=== PATIENT | male | born 1950 | race Caucasian/White ===

== ENCOUNTER 2024-03-03 22:57 | Outpatient (CLI) | payer MEDICARE | END 2024-03-03 22:58 | disposition critical access hospital (66) | LOC: EMS 22:57 | DX: R55 Syncope and collapse (principal); M25.551 Pain in right hip | CPT/HCPCS: A0425; A0427 ==

== ENCOUNTER 2024-03-03 23:35 | Emergency (ER) | payer BC, MEDICARE ==
[2024-03-04 00:18] LABS: BASOPHILS # (AUTO) 0.1 10^3/uL (0.0-0.1); BASOPHILS % (AUTO) 0.7 %; EOSINOPHILS # (AUTO) 0.2 10^3/uL (0.0-0.7); EOSINOPHILS % (AUTO) 1.7 %; HCT - HEMATOCRIT 40.4 % (42.0-52.0); HGB - HEMOGLOBIN 12.8 g/dL (14.0-18.0); LYMPHOCYTES % (AUTO) 8.3 %; MEAN CORPUSCULAR HEMOGLOBIN 29.8 pg (27.0-31.0); MEAN CORPUSCULAR HGB CONC 31.7 g/dL (32.0-36.0); MEAN PLATELET VOLUME 10.2 fL (7.4-11.4); MONOCYTES # (AUTO) 0.8 10^3/uL (0.0-1.0); MONOCYTES % (AUTO) 6.8 %; NEUTROPHILS # (AUTO) 9.9 10^3/uL (1.5-6.6); NEUTROPHILS % (AUTO) 82.2 %; PLT - PLATELET COUNT 267 10^3/uL (130-450); RED CELL DISTRIBUTION WIDTH 13.7 % (12.0-15.0)
[2024-03-04 00:39] LABS: ALBUMIN 3.6 g/dL (3.2-5.5); ALBUMIN/GLOBULIN RATIO 1.6 (1.0-2.2); BILIRUBIN,TOTAL 0.8 mg/dL (0.2-1.0); POTASSIUM 4.1 mmol/L (3.5-4.5); TOTAL PROTEIN 5.8 g/dL (6.4-8.9); TROPONIN I HIGH SENSITIVITY 7.5 ng/L (2.3-19.7)
[2024-03-04] MEDS: HYDROmorphone 0.5 MG/0.5 ML SYRINGE IVP STA (01:16)
[2024-03-04] MEDS: SODIUM CHLORIDE 0.9% 1,000 ML IV STA (01:16)
--- NOTE | 2024-03-04 01:40 | ED Physician Documentation ---
History of Present Illness - Stated complaint Stated Complaint: SYNCOPE - Chief complaint Chief Complaint: Neuro - History obtained from History obtained from: Patient, EMS - Additonal information Additional information: The pt comes to the ED via EMS for CC of R hip pain and syncopal episode after working in the garden today. He states he was out all day and didn't eat or drink any water. He was trying to move a heavy shovel of dirt, when he strained his R hip, feeling several "pops". He states he sat down for a few minutes, but was then able to get up and stand and walk on his R hip without difficulty. However, he reports pain in the inner thigh/groin, where the leg attaches to the pelvic area. No swelling. No pain in the joint. The patient came inside to fix some food, and while in the kitchen, began to feel dizzy. He denies any SOB or CP at that time. However, he was lightheaded, so went to sit down on the couch, where he lost consciousness. He awoke to find himself still on the couch, but estimates up to 5 minutes had passed. He states he still felt a bit lightheaded, but denies onset of new sx. The pt states he has fainted once before. No known cardiac issues. PD PAST MEDICAL HISTORY - Past Medical History Past Medical History: Yes Cardiovascular: Hypertension, High cholesterol GI: GERD - Past Surgical History Past Surgical History: Yes Ortho: ACL reconstruction, Rotator cuff repair Cardiovascular: CABG - Present Medications Home Medications: Ambulatory Orders Medication Instructions Recorded Confirmed Atorvastatin [Lipitor] See Rx Instructions .ROUTE .COMPLEX 03/04/24 HYDROcod/ACETAM 5/325 [[place] 5/325] 1 - 2 tablet PO Q6H PRN #14 tablet 03/04/24 Metoprolol Tartrate [Lopressor] See Rx Instructions .ROUTE .COMPLEX 03/04/24 Pantoprazole Sodium See Rx Instructions .ROUTE .COMPLEX 03/04/24 Warfarin [Coumadin] See Rx Instructions .ROUTE .COMPLEX 03/04/24 03/04/24 buPROPion [Wellbutrin Xl] See Rx Instructions .ROUTE .COMPLEX 03/04/24 - Allergies Allergies/Adverse Reactions: Allergies Allergy/AdvReac Type Severity Reaction Status Date / Time No Known Drug Allergies Allergy Verified 03/03/24 23:35 - Social History Does the pt smoke?: No Smoking Status: Never smoker Does the pt drink ETOH?: Yes Substance Use and Type: Marijuana PD ED PE NORMAL - Vitals Vital signs reviewed: Yes - General General: Alert and oriented X 3, No acute distress, Well developed/nourished - HEENT HEENT: Atraumatic, PERRL, EOMI, Moist mucous membranes - Neck Neck: Supple, no meningeal sign - Cardiac Cardiac: RRR, No murmur, Strong equal pulses - Respiratory Respiratory: No respiratory distress, Clear bilaterally - Abdomen Abdomen: Soft, Non tender, Non distended - Derm Derm: Normal color, Warm and dry, No rash - Extremities Extremities: No deformity, Normal ROM s pain, No edema, No calf tenderness / cord, Other (TTP of superior-most and medial-most aspect of adductors on R LE. No tenderness of hip joint. No pain with ROM.) - Neuro Neuro: Alert and oriented X 3 - Psych Psych: Normal mood, Normal affect Results - Vitals Vitals: Oxygen O2 Source Room air - EKG (time done) 0005 EKG releavant findings:: EKG personally interpreted by author of this note. Relevant findings are: Rate: Rate (enter#) (55) Rhythm: NSR [place]: Normal Intervals: Normal IA QRS: Normal Ischemia: Normal ST segments Compare to prior EKG: Old EKG unavailable Computer interpretation: Agree with computer - Labs Labs: Laboratory Tests 03/04/24 03/04/24 00:13 00:13 WBC 12.0 H RBC 4.30 L Hgb 12.8 L Hct 40.4 L MCV 94.0 MCH 29.8 MCHC 31.7 L RDW 13.7 Plt Count 267 MPV 10.2 Neut # (Auto) 9.9 H Lymph # (Auto) 1.0 L [place] # (Auto) 0.8 Eos # (Auto) 0.2 Baso # (Auto) 0.1 Absolute Nucleated RBC 0.00 Nucleated RBC % 0.0 Sodium 137 Potassium 4.1 Chloride 107 Carbon Dioxide 24 Anion Gap 6.0 BUN 20 Creatinine 1.0 Estimated GFR (MDRD) 73 L Glucose 118 H Calcium 9.0 Total Bilirubin 0.8 AST 18 ALT 21 Alkaline Phosphatase 54 Troponin I High Sens 7.5 Total Protein 5.8 L Albumin 3.6 Globulin 2.2 Albumin/Globulin Ratio 1.6 Lipase 18 - Rads (name of study) R hip/pelvis XR Relevant Findings:: Final report received, Other (neg) PD Medical Decision Making - ED course Complexity details: reviewed old records, reviewed results, re-evaluated patient, considered differential, d/w patient ED course: The patient was treated with a liter of NS via IV and worked up with labs, EKG, and XR R hip/pelvis, all of which were unremarkable. He was able to ambulate in the ED, though with mild limp, using a walker. I felt the pt was stable for d/c home. I suspected his syncopal episode was due to dehydration after working in the sun all day without food or water, and perhaps the added effect of the pain on top of that. The pt felt better after fluids, and had no further complaints, other than the hip. We have discussed symptomatic management at home, as well as the usual indications for return. Departure - Departure Disposition: 01 Home, Self Care Clinical Impression: Dehydration Syncope Qualifiers: Syncope type: unspecified Qualified Code(s): R55 - Syncope and collapse Hip strain Qualifiers: Encounter type: initial encounter Laterality: right Qualified Code(s): S76.011A - Strain of muscle, fascia and tendon of right hip, initial encounter Condition: Stable Instructions: ED Dehydration, ED Dizziness Syncope Fainting W Pre Prescriptions: HYDROcod/ACETAM 5/325 [[place] 5/325] 1 - 2 tablet PO Q6H PRN #14 tablet PRN Reason: Pain Comments: All of your labs look good. Your EKG also is reassuring and your x-ray does not show any broken bones. You have been treated with 2 L of IV fluids tonight to help with the dehydration. Most likely, between the pain in your hip and some dehydration, this is what caused you to have your fainting episode. As far as the hip, there is no evidence of a bony injury and most likely you sustained some muscle strains/tears or possibly sprained some of the ligaments in your hip. You have been prescribed pain medication, and the prescription has been electronically transmitted to the [facility] pharmacy in [place]. Please follow-up with your primary doctor to discuss MRI if your symptoms are not any better in the next couple of weeks. Forms: PCP List Discharge Date/Time: 03/04/24 04:05
[2024-03-04 03:47] VITALS: BP 103/47; O2SAT 95
--- NOTE | 2024-03-04 09:20 | XRAY Report ---
PROCEDURE: Hip w/Pelvis 2-3V RT INDICATIONS: R hip/pelvis pain/injury TECHNIQUE: 2 views of the hip were acquired. COMPARISON: None. FINDINGS: Bones: No fractures or dislocations. No suspicious bony lesions. Nonuniform joint space narrowing o f the hips, with associated osteophytosis. Soft tissues: No suspicious soft tissue calcifications or masses. Surgical clips project over the pelvis. IMPRESSION: No acute bony abnormality. Findings were discussed with ordering provider at time of dictation. Reviewed by: Ernesto Ryan MD on 03/04/2024 8:19 AM [facility] Approved by: Ernesto Ryan MD on 03/04/2024 8:19 AM AKDT Station ID: [id number]
== END 2024-03-04 04:05 | disposition home or self-care (01) ==
LOC: EDBD → ED 23:35
DX: S76.011A Strain of muscle, fascia and tendon of right hip, initial encounter (principal); E86.0 Dehydration; R55 Syncope and collapse; X50.0XXA Overexertion from strenuous movement or load, initial encounter; Y92.89 Other specified places as the place of occurrence of the external cause; I10 Essential (primary) hypertension; E78.00 Pure hypercholesterolemia, unspecified; Z95.1 Presence of aortocoronary bypass graft; Z79.899 Other long term (current) drug therapy; Z79.01 Long term (current) use of anticoagulants
CPT/HCPCS: 36415; 73502; 80053; 83690; 84484; 85025; 93005; 96361; 96374; 99284; J1170